=== PATIENT | male | born 1985 | race American Indian/Alaskan Native ===

== ENCOUNTER 2017-06-22 15:29 | Emergency (ER) | payer OTHER ==
[2017-06-22 15:35] VITALS: BP 127/70; PULSE 76; RESP 16; TEMP 97.8; O2SAT 100
--- NOTE | 2017-06-22 16:39 | ED PDOC ---
HPI: Headache Time Seen by Provider: 06/22/17 15:38 Chief Complaint (Nursing): Headache Chief Complaint (Provider): Headache History Per: Patient History/Exam Limitations: no limitations Onset/Duration Of Symptoms: Days (x2 days) Current Symptoms Are (Timing): Still Present Additional Complaint(s): 31y/o male with a history of brain tumor presents to the ED complaining of pulsating headache in right forehead since yesterday. Patient states taking over the counter medicine with some relief, but the headache starts again after sometime. Patient notes that he never had this type of headache. Denies any further medical complaints. Denies N/V. Pt states his tumor was diagnosed when he was 16 and he was followed for 10 years by neurologist; it was located in left frontal region. Past Medical History Reviewed: Historical Data, Nursing Documentation, Vital Signs Vital Signs: Last Vital Signs Temp 97.8 F 06/22/17 15:32 Pulse 76 06/22/17 15:32 Resp 16 06/22/17 15:32 BP 127/70 06/22/17 15:32 Pulse Ox 100 06/22/17 15:32 - Medical History Other PMH: LEft frontal brain tuor - Surgical History Surgical History: No Surg Hx - Family History Family History: States: Unknown Family Hx Denies: MS, CAD - Immunization History Hx Tetanus Toxoid Vaccination: Yes Hx Influenza Vaccination: No Hx Pneumococcal Vaccination: No - Home Medications Home Medications: Ambulatory Orders Medication Instructions Recorded Cyclobenzaprine [Flexeril] 5 mg PO TID #21 tab 11/21/16 Naproxen [Naprosyn] 500 mg PO BID #20 tab 11/21/16 - Allergies Allergies/Adverse Reactions: Allergies Allergy/AdvReac Type Severity Reaction Status Date / Time No Known Allergies Allergy Verified 06/22/17 15:32 Review of Systems ROS Statement: Except As Marked, All Systems Reviewed And Found Negative (As per HPI, otherwise negative) Neurological: Positive for: Headache (pulsating headache in right forehead ) Physical Exam - Reviewed Nursing Documentation Reviewed: Yes Vital Signs Reviewed: Yes - Physical Exam Appears: Positive for: Non-toxic, No Acute Distress Head Exam: Positive for: ATRAUMATIC, NORMAL INSPECTION, NORMOCEPHALIC Skin: Positive for: Normal Color, Warm, Dry Eye Exam: Positive for: Normal appearance, EOMI, PERRL ENT: Positive for: Normal ENT Inspection Neck: Positive for: Normal Respiratory: Negative for: Accessory Muscle Use, Respiratory Distress Neurologic/Psych: Positive for: Alert, transportation department supervisor II-XII, Oriented (x3), Mood/Affect, Cerebellar Tests, Gait. Negative for: Motor/Sensory Deficits, Aphasia, Facial Droop - ECG O2 Sat by Pulse Oximetry: 100 (RA) Pulse Ox Interpretation: Normal Medical Decision Making Medical Decision Making: Time: 16:26 Plan: CT Head w/o contrast Sumatriptan 6mg SC Time: 17:[address] FINDINGS: HEMORRHAGE: The current study reveals no acute parenchymal, subarachnoid or extra-axial hemorrhage. . BRAIN: Re- demonstrated is a ill-defined (poorly defined borders) hyperdense mass lesion in the left thalamus that measures approximately 2.8cm ap x 2.1cm trans x 1.6cm cc. This lesion contains a cluster of lobular calcifications along its anterior and inferior border. This lesion is of uncertain etiology although could possibility of avascular lesion such is an AVM given the calcifications and lack of significant surrounding edema. The possibility of a low-grade primary tumor not excluded. . Followup pre and post-contrast MRI of the brain is recommended. . Note also made of a somewhat cylindrical area of low attenuation in the left frontal lobe which is best seen on axial image number [id number] 34 and 35 . Rule out nonspecific gliosis. VENTRICLES: No obstructive No hydrocephalus. CALVARIUM: Calvarium appears intact PARANASAL SINUSES: Unremarkable as visualized. No significant inflammatory changes. MASTOID AIR CELLS: Unremarkable as visualized. No inflammatory changes. OTHER FINDINGS: None. IMPRESSION: Re- demonstrated is a poorly defined oval hyperdense mass lesion in the left thalamus that contains a cluster of lobular calcifications along its anterior inferior border. This lesion is of uncertain etiology though could represent a vascular lesion such is AVM given the relative presence of calcifications and relative lack of significant surrounding edema although however low-grade primary tumor cannot be completely excluded. Followup pre and post-contrast MRI of the brain is recommended. Note also made of a somewhat cylindrical area of low attenuation in the left frontal lobe which is best seen on axial image number [id number] 34 and 35 . Rule out nonspecific gliosis. Again MRI would be useful for further evaluation of this abnormality as well. No evidence of acute intracranial hemorrhage. Pt reports feeling better on re-evaluation after imitrex. Scribe Attestation: Documented by Jimenez Garnica acting as a scribe for FREDDIE Combs. MD Shah Attestation: All medical record entries made by the Scribe were at my direction and personally dictated by me. I have reviewed the chart and agree that the record accurately reflects my personal performance of the history, physical exam, medical decision making, and the department course for this patient. I have also personally directed, reviewed, and agree with the discharge instructions and disposition. Disposition - Clinical Impression Clinical Impression: Headache - Patient ED Disposition Is Patient to be Admitted: No Counseled Patient/Family Regarding: Diagnosis, Need For Followup - Disposition Disposition: Routine/Home Disposition Time: 18:45 Condition: GOOD Additional Instructions: Please follow-up with Dr. Mcdonald or another neurologist for further evaluation. Instructions: Migraine Headache (ED) Forms: [employer] (Serbian), [facility] ED School/Work Excuse
--- NOTE | 2017-06-22 17:46 | CT ---
PROCEDURE: CT HEAD WITHOUT CONTRAST. HISTORY: Right t sided headache. History of tumor. No similar in past COMPARISON: Comparison made with prior study dated 01/25/2017 TECHNIQUE: Axial computed tomography images were obtained through the head/brain without intravenous contrast. Radiation dose: Total exam DLP = 936.35 mGy-cm. This CT exam was performed using one or more of the following dose reduction techniques: Automated exposure control, adjustment of the mA and/or kV according to patient size, and/or use of iterative reconstruction technique. FINDINGS: HEMORRHAGE: The current study reveals no acute parenchymal, subarachnoid or extra-axial hemorrhage. . BRAIN: Re- demonstrated is a ill-defined (poorly defined borders) hyperdense mass lesion in the left thalamus that measures approximately 2.8cm ap x 2.1cm trans x 1.6cm cc. This lesion contains a cluster of lobular calcifications along its anterior and inferior border. This lesion is of uncertain etiology although could possibility of avascular lesion such is an AVM given the calcifications and lack of significant surrounding edema. The possibility of a low-grade primary tumor not excluded. . Followup pre and post-contrast MRI of the brain is recommended. . Note also made of a somewhat cylindrical area of low attenuation in the left frontal lobe which is best seen on axial image number [id number] 34 and 35 . Rule out nonspecific gliosis. VENTRICLES: No obstructive No hydrocephalus. CALVARIUM: Calvarium appears intact PARANASAL SINUSES: Unremarkable as visualized. No significant inflammatory changes. MASTOID AIR CELLS: Unremarkable as visualized. No inflammatory changes. OTHER FINDINGS: None. IMPRESSION: Re- demonstrated is a poorly defined oval hyperdense mass lesion in the left thalamus that contains a cluster of lobular calcifications along its anterior inferior border. This lesion is of uncertain etiology though could represent a vascular lesion such is AVM given the relative presence of calcifications and relative lack of significant surrounding edema although however low-grade primary tumor cannot be completely excluded. Followup pre and post-contrast MRI of the brain is recommended. Note also made of a somewhat cylindrical area of low attenuation in the left frontal lobe which is best seen on axial image number [id number] 34 and 35 . Rule out nonspecific gliosis. Again MRI would be useful for further evaluation of this abnormality as well. No evidence of acute intracranial hemorrhage.
== END 2017-06-22 18:57 | disposition home or self-care (01) ==
LOC: H.ER 15:29
DX: R51 Headache (principal)
CPT/HCPCS: 70450; 96372; 99284; J3030